=== PATIENT | female | born 1965 | race Caucasian/White ===

== ENCOUNTER 2017-10-19 12:53 | Emergency (ER) | payer MEDICAID, OTHER ==
[~2017-10-19] VITALS: Wt 77.2 kg
[2017-10-19] MEDS ORDERED: SOD CHLORIDE 0.9% 1,000 ML IV STA (12:58)
--- NOTE | 2017-10-19 13:17 | RADRPT ---
PROCEDURE: XR Chest. CLINICAL INDICATION: Chest pain TECHNIQUE: Single portable view of the chest was obtained COMPARISON: None FINDINGS: The heart is enlarged. The lungs are clear. There is mild elevation of the right diaphragm. There is no pleural effusion or pneumothorax. RPTAT: AA IMPRESSION: Mild Cardiomegaly. .Behzad Sarabia MD, MD Date Time Electronically viewed and signed by .Behzad Sarabia MD, on 10/19/2017 13:17 .S/
--- NOTE | 2017-10-19 13:28 | ERD ---
ER Documentation Chief Complaint Chief Complaint SYNCOPE WHILE AT WORK. NO TRAUMA. NO NECK OR BACK. NO NEURO DEF. HPI 52-year-old woman brought in by EMS for a syncopal episode shortly after using opioid analgesics for chronic recurrent low back pain. She states she normally does not use these medications but was seen and evaluated at another emergency department recently and prescribed oxycodone. She used 1 dose yesterday and felt dizzy and then 1 dose this morning while at work and then fainted. The episode was witnessed she had no seizure activity, no recent fevers or chills, no vomiting or diarrhea, no complaints of headache or blurry vision, no slurred speech. Patient denies dysuria or hematuria. EMS transported here without complications. Patient's mental status returned to normal in route. ROS All systems reviewed and are negative except as per history of present illness. Medications Home Meds Active Scripts Ibuprofen* (Ibuprofen*) 600 Mg Tablet, 600 MG PO Q8 for PAIN AND/OR INFLAMMATION , #30 TAB Prov:ALEX SALAZAR MD 10/19/17 Allergies Allergies: Coded Allergies: No Known Allergy (Unverified , 10/19/17) PMhx/Soc Chronic back pain, sciatica FmHx Family History: No diabetes Physical Exam Vitals Vital Signs Date Time Temp Pulse Resp B/P Pulse Ox O2 Delivery O2 Flow Rate FiO2 10/19/17 14:42 63 20 157/99 100 Room Air 10/19/17 13:05 98.0 68 20 133/81 98 Physical Exam GENERAL: Well-developed, well-nourished, well-hydrated, in no apparent distress , looks nontoxic in appearance HEENT: Moist mucous membranes, pink conjunctiva, no cervical spine tenderness or step-off deformities, no goiter, no jaundice or icterus, extraocular movements intact without pain. No submandibular induration, and no pharyngeal erythema NEURO: Alert and oriented 3, cranial nerves II through XII intact bilaterally, pupils equal round reactive to light, no focal deficits or facial asymmetry, sensation intact distally Strength 5/5 in upper and lower extremities bilaterally CARDIAC: Bradycardic and regular no murmurs rubs or gallops LUNGS: Clear bilaterally no wheezing crackles or stridor ABDOMEN: Soft nontender, no guarding, no rigidity, no rebound, no psoas sign no obturator sign. Normoactive bowel sounds SKIN: Warm and dry to touch, no abrasions, contusions, or hematomas, no lacerations, no ecchymosis, no target lesions, and without ulcers EXTREMITIES: No clubbing cyanosis or edema, calves are bilaterally symmetrical, no Homans sign, no popliteal cord sign. Distal pulses equal and bilateral PSYCH: Normal affect without agitation or irritability Result Diagram: 10/19/17 1318 10/19/17 1318 Results 24 hrs Laboratory Tests Test 10/19/17 13:18 White Blood Count 7.610^3/ul Red Blood Count 4.0010^6/ul Hemoglobin 12.2g/dl Hematocrit 35.6% Mean Corpuscular Volume 89.0fl Mean Corpuscular Hemoglobin 30.5pg Mean Corpuscular Hemoglobin Concent 34.3g/dl Red Cell Distribution Width 12.7% Platelet Count 71102^3/UL Mean Platelet Volume 11.3fl Neutrophils % 44.5% Lymphocytes % 48.6% Monocytes % 5.2% Eosinophils % 1.1% Basophils % 0.3% Nucleated Red Blood Cells % 0.0/100WBC Neutrophils # 3.410^3/ul Lymphocytes # 3.710^3/ul Monocytes # 0.410^3/ul Eosinophils # 0.110^3/ul Basophils # 0.010^3/ul Nucleated Red Blood Cells # 0.010^3/ul Prothrombin Time 12.9Sec Prothrombin Time Ratio 1.0 INR International Normalized Ratio 0.97 Sodium Level 143mmol/L Potassium Level 3.2mmol/L Chloride Level 106mmol/L Carbon Dioxide Level 25mmol/L Anion Gap 15 Blood Urea Nitrogen 20mg/dl Creatinine 0.85mg/dl Glucose Level 123mg/dl Calcium Level 8.5mg/dl Total Bilirubin 0.1mg/dl Direct Bilirubin 0.00mg/dl Indirect Bilirubin 0.1mg/dl Aspartate Amino Transf (AST/SGOT) 52IU/L Alanine Aminotransferase (ALT/SGPT) 57IU/L Alkaline Phosphatase 100IU/L Troponin I < 0.012ng/ml Total Protein 6.8g/dl Albumin 3.9g/dl Globulin 2.90g/dl Albumin/Globulin Ratio 1.34 Lipase 217U/L Current Medications Medications (Trade) Dose Ordered Sig/Rafael Route PRN Reason Start Time Stop Time Status Last Admin Dose Admin Sodium Chloride (NS) 1,000 ml @ 1,000 mls/hr Q1H STAT IV 10/19/17 12:58 10/19/17 13:57 DC 10/19/17 13:21 Procedures/MDM IV line was established 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 Patient was afebrile EKG performed, read by me: 65 bpm, normal sinus rhythm, normal axis, no acute ST segment changes, narrow QRS complex, with good R-wave progression in precordial leads. Chest X-ray 1V Interpreted by me: Soft Tissue: No acute abnormalities Bones: No acute abnormalities Mediastinum/Cardiac Silhouette/Lungs: No acute abnormalities CBC and electrolytes were normal, liver function tests were normal, troponin was negative. I suspect syncopal episode an adverse reaction secondary to opioid therapy, I reassured her and recommended she discontinue opioids and instead use NSAIDs for chronic recurrent back pain. Differential diagnoses considered, included but not limited to acute coronary syndrome, pulmonary embolism, aortic dissection, abdominal aortic aneurysm, sepsis, stroke, meningitis, encephalitis, pneumonia, appendicitis, cholecystitis , bowel obstruction, pyelonephritis, nephrolithiasis, cystitis, as well as metabolic, hematologic, and electrolyte abnormalities. As well as abscess, cellulitis, fractures, and dislocations. Patient feels much better at this time, and vital signs are normal, symptoms have improved. I did give strict instructions to return to the ED if symptoms continue or worsen, patient will otherwise follow-up with primary care physician. Patient understood instructions and agreed to plan. Disclaimer: Inadvertent spelling and grammatical errors are likely due to EHR/ dictation software use and do not reflect on the overall quality of patient care. Also, please note that the electronic time recorded on this note does not necessarily reflect the actual time of the patient encounter. Departure Diagnosis: Primary Impression: Syncope Syncope type: unspecified Qualified Code: R55 - Syncope, unspecified syncope type Additional Impressions: Adverse reaction to drug Encounter type: initial encounter Qualified Code: T88.7XXA - Adverse effect of drug, initial encounter Low back pain Chronicity: chronic Back pain laterality: bilateral Sciatica presence: with sciatica Sciatica laterality: bilateral sciatica Qualified Code: M54.42 - Chronic bilateral low back pain with bilateral sciatica Condition: ALEX Rosario MD Oct 19, 2017 13:28
[2017-10-19 13:34] LABS: BASOPHILS % 0.3 % (0.0-2.0); EOSINOPHILS # 0.1 10^3/ul (0.0-0.5); EOSINOPHILS % 1.1 % (0.0-7.0); HEMATOCRIT 35.6 % (37.0-47.0); HEMOGLOBIN 12.2 g/dl (12.0-16.0); LYMPHOCYTES # 3.7 10^3/ul (0.8-2.9); LYMPHOCYTES % 48.6 % (15.0-51.0); MEAN CORPUSCULAR HEMOGLOBIN 30.5 pg (29.0-33.0); MEAN CORPUSCULAR HGB CONC 34.3 g/dl (32.0-37.0); MEAN PLATELET VOLUME 11.3 fl (7.4-10.4); MONOCYTE # 0.4 10^3/ul (0.3-0.9); MONOCYTES % 5.2 % (0.0-11.0); NEUTROPHIL # 3.4 10^3/ul (1.6-7.5); NEUTROPHILS % 44.5 % (39.0-77.0); PLATELET COUNT 181 10^3/UL (140-415); RED CELL DISTRIBUTION WIDTH 12.7 % (11.5-14.5); WHITE BLOOD COUNT 7.6 10^3/ul (4.8-10.8)
[2017-10-19 14:04] LABS: ALANINE AMINOTRANSFERASE 57 IU/L (13-69); ALBUMIN 3.9 g/dl (3.3-4.9); ALBUMIN/GLOBULIN RATIO 1.34; ALKALINE PHOSPHATASE 100 IU/L (42-121); ANION GAP 15 (8-16); ASPARTATE AMINO TRANSFERASE 52 IU/L (15-46); BILIRUBIN,INDIRECT 0.1 mg/dl (0-1.1); BILIRUBIN,TOTAL 0.1 mg/dl (0.2-1.3); BLOOD UREA NITROGEN 20 mg/dl (7-20); CALCIUM 8.5 mg/dl (8.4-10.2); CARBON DIOXIDE 25 mmol/L (21-31); CHLORIDE 106 mmol/L (97-110); CREATININE 0.85 mg/dl (0.44-1.00); GLUCOSE 123 mg/dl (70-220); INR 0.97; POTASSIUM 3.2 mmol/L (3.5-5.1); PROTIME 12.9 Sec (12.2-14.2); SODIUM 143 mmol/L (135-144); TOTAL PROTEIN 6.8 g/dl (6.1-8.1)
[2017-10-19 14:24] LABS: TROPONIN-I < 0.012 ng/ml (0.00-0.12)
[2017-10-19 14:42] VITALS: BP 157/99; PULSE 63; RESP 20
[2017-10-19] MEDS ORDERED: IBUP-1542 PO (14:46)
== END 2017-10-19 15:10 | disposition home or self-care (01) ==
LOC: E/R 12:53
DX: R55 Syncope and collapse (principal); T40.2X5A Adverse effect of other opioids, initial encounter; M54.42 Lumbago with sciatica, left side
CPT/HCPCS: 36415; 71010; 80053; 83690; 84484; 85025; 85610; 93005; J7030; Z7502